=== PATIENT | female | born 1990 | race Caucasian/White ===

== ENCOUNTER 2016-09-25 02:50 | Emergency (ER) | payer BC ==
[2016-09-25] MEDS ORDERED: MORPHINE SULFATE 10 MG/ML INJ IM ONE ×2 (06:31→09:21)
[2016-09-25] MEDS ORDERED: LIDOCAINE 1% INJ-PF (10 MG/ML) 30 ML SDV INJ ONE (06:31)
[2016-09-25] MEDS ORDERED: ONDANSETRON 4 MG TAB.RAPDIS PO ONE ×2 (07:20→09:21)
[2016-09-25] MEDS ORDERED: ONDANSETRON 4 MG TAB.RAPDIS ONE (07:22)
--- NOTE | 2016-09-25 08:05 | ER Document Report ---
Doctor's Note Notes: 09/25/16 08:03 Pt evaluated, noted to have right axillary abscess, given pain control, ID set up placed
[2016-09-25] MEDS ORDERED: ONDANSETRON HCL INJ/PF 4 MG/2 ML SDV IV ONE (09:01)
[2016-09-25] MEDS ORDERED: MORPHINE SULFATE 10 MG/ML INJ IV ONE (09:01)
--- NOTE | 2016-09-25 09:07 | ER Document Report ---
ED General - General Chief Complaint: Abscess Stated Complaint: ABSCESS Mode of Arrival: Ambulatory Information source: Patient Notes: Patient presents emergency department with HER right arm. Patient reports symptoms since for 5 days ago. She reports she cut herself shaving believes it started that way. Denies history of MRSA but does have a history of hep c, passed on from her mother when she was born. She denies fever vomiting diarrhea. Patient is extremely anxious would not hold her arm up for me to look at the abscess. Provided with much of emotional support and coaxing pt finally lifted arm to note erythema, no induration under right arm. Patient has been treating the area with barb TRAVEL OUTSIDE OF THE [place] IN LAST 30 DAYS: No - HPI Onset: Other - 4-5 days Onset/Duration: Persistent Quality of pain: Achy, Burning, Sharp Severity: Severe Pain Level: 5 Associated symptoms: None Exacerbated by: Movement Relieved by: Denies Similar symptoms previously: No Recently seen / treated by doctor: No - Related Data Allergies/Adverse Reactions: No Known Allergies Allergy (Unverified 09/05/15 02:46) Past Medical History - General Information source: Patient Last Menstrual Period: august 28 - Social History Smoking Status: Current Every Day Smoker Cigarette use (# per day): Yes Chew tobacco use (# tins/day): No Frequency of alcohol use: None Drug Abuse: None Lives with: Family Family History: Other - Mother with hepatitis C. Patient has suicidal ideation: No Patient has homicidal ideation: No Renal/ Medical History: Denies: Hx Peritoneal Dialysis GI Medical History: Reports: Hx Hepatitis Surgical Hx: Negative - Immunizations Hx Diphtheria, Pertussis, Tetanus Vaccination: No Review of Systems - Review of Systems Notes: Review HPI for review of systems., All other systems negative Physical Exam - Vital signs Vitals: Temp Pulse Resp BP Pulse Ox 98.5 F 101 H 19 135/65 H 97 09/25/16 03:19 09/25/16 03:19 09/25/16 03:19 09/25/16 03:19 09/25/16 03:19 - Notes Notes: PHYSICAL EXAMINATION: GENERAL: nontoxic looking HEAD: Atraumatic, normocephalic. EYES: Pupils equal round extraocular movements intact, sclera anicteric, conjunctiva are normal. ENT: nares patent, Moist mucous membranes. NECK: Normal range of motion, supple without lymphadenopathy LUNGS: CTAB and equal. No wheezes rales or rhonchi. HEART: Regular rate and rhythm without murmurs ABDOMEN: Soft, no tenderness. No guarding, no rebound EXTREMITIES: Normal range of motion, no pitting edema. abscess right axillae NEUROLOGICAL: Cranial nerves grossly intact. Normal sensory/motor PSYCH: Anxious SKIN: Warm, Dry, normal turgor, + abscess right axillae - Skin Skin irregularity: Abscess Location of irregularity: Other - right axillae Character of irregularity: Erythematous Irregularity with: Tenderness. negative: Induration Course - Re-evaluation Re-evalutation: 09/25/16 09:07 Patient was instructed on procedure. Patient was instructed on sulfa medications signs and symptoms of allergic reaction. Patient will be provided with some more morphine with Zofran and then procedure done. She agrees on plan of care. 09/25/16 09:53 The patient bit down on gauze and screamed the entire procedure. large t incision made, large amount of drainage obtained, area squeezed and probed. She was instructed on medications and treatment of abscess. Her boyfriend verbalized understanding to all instructions. - Vital Signs Vital signs: Temp Pulse Resp BP Pulse Ox 98.5 F 101 H 19 135/65 H 97 09/25/16 03:19 09/25/16 03:19 09/25/16 03:19 09/25/16 03:19 09/25/16 03:19 Procedures - Incision and Drainage Right AXILLAE Type: Simple Anesthetic type: 1% Lidocaine Blade size: 11 I&D procedure: Shurclens applied Incision Method: Incision made by scalpel - large t shaped incision Amount/type of drainage: large amount thick purulent whitish/yellow drainage Notes: 09/25/16 09:53 area probed Discharge - Discharge Clinical Impression: Abscess, Elevated blood pressure reading Condition: Stable Disposition: HOME, SELF-CARE Instructions: Abscess ([facility]), Oral Narcotic Medication ([facility]), Post Incision and Drainage, Trimethoprim-Sulfa ([facility]), Cephalexin ([facility]) Additional Instructions: *You have been treated for an abscess with incision and drainage *Take medication as prescribed *Monitor the site for signs of increasing infection such as increasing pain, redness, swelling, warmth *Wash the site twice daily as discussed *Follow up with a primary care provider within 5 days for recheck *Return to ED for signs of increasing infection, worsening condition, changes, needs Monitor your blood pressure. Your blood pressure was elevated today. This may be because you were anxious, in pain or because you need medication. It is important to follow up with your primary care provider for full evaluation. Prescriptions: Cephalexin Monohydrate [Keflex 500 mg Capsule] 500 mg PO QID #20 capsule Oxycodone HCl 5 mg PO QID PRN #15 capsule PRN Reason: Sulfamethoxazole/Trimethoprim [Bactrim Ds Tablet] 1 each PO BID #20 tablet Forms: Elevated Blood Pressure
[2016-09-25 10:12] VITALS: BP 129/74
== END 2016-09-25 10:12 | disposition home or self-care (01) ==
LOC: ER 02:50
PROC: 0H9BXZZ Drainage of Right Upper Arm Skin, External Approach (ICD-10-PCS; principal; 2016-09-25)
DX: L02.411 Cutaneous abscess of right axilla (principal); F41.9 Anxiety disorder, unspecified; R03.0 Elevated blood-pressure reading, without diagnosis of hypertension; F17.210 Nicotine dependence, cigarettes, uncomplicated
CPT/HCPCS: 10060; 99283; 96372; 87070; 87205; 87075; 87077; 87186; S0119; J2270

== ENCOUNTER 2018-05-08 08:13 | Emergency (ER) | payer BC ==
[2018-05-08] MEDS ORDERED: IPRATROPIUM/ALBUTEROL 0.5-2.5 MG/3 ML AMPUL NEB ONE (09:05)
[2018-05-08] MEDS ORDERED: ALBUTEROL SULFATE 0.083% NEB 2.5 MG/3 ML AMPUL NEB ONE (09:42)
[2018-05-08] MEDS ORDERED: ALBUTEROL SULFATE HFA (90 MCG/PUFF) 8 GM MDI (1 MDI/ER DISP) IH PRN (09:44)
[2018-05-08] MEDS ORDERED: IBUPROFEN 800 MG TABLET PO ONE (09:44)
[2018-05-08] MEDS ORDERED: GUAIFENESIN 600 MG TABLET.SA PO ONE (09:44)
[2018-05-08] MEDS ORDERED: PREDNISONE 20 MG TABLET PO ONE (09:44)
--- NOTE | 2018-05-08 09:44 | RADIOLOGY REPORT (SQ) ---
EXAM DESCRIPTION: CHEST 2 VIEWS COMPLETED DATE/TIME: 05/08/2018 9:17 am REASON FOR STUDY: cough COMPARISON: None. EXAM PARAMETERS: NUMBER OF VIEWS: two views TECHNIQUE: Digital Frontal and Lateral radiographic views of the chest acquired. RADIATION DOSE: NA LIMITATIONS: none FINDINGS: LUNGS AND PLEURA: No opacities, masses or pneumothorax. No pleural effusion. MEDIASTINUM AND HILAR STRUCTURES: No masses or contour abnormalities. HEART AND VASCULAR STRUCTURES: Heart normal size. No evidence for failure. BONES: No acute findings. HARDWARE: None in the chest. OTHER: No other significant finding. IMPRESSION: NO ACUTE RADIOGRAPHIC FINDING IN THE CHEST. TECHNICAL DOCUMENTATION: JOB ID: [id number] [email or web address]- All Rights Reserved Reading location - IP/workstation name: [email or web address]
--- NOTE | 2018-05-08 09:50 | ER Document Report ---
ED General - General Chief Complaint: Cold Symptoms Stated Complaint: COUGH Time Seen by Provider: 05/08/18 09:02 Mode of Arrival: Ambulatory Information source: Patient, [facility] Records Notes: 28-year-old female with hepatitis C not currently receiving treatment presents with complaint of cough, congestion, shortness of breath that started 1 month prior to arrival. Patient states that she has had a persistent productive cough for 1 month. She states it is associated with chest pain and shortness of breath with coughing only. Patient does admit to smoking a half a pack of cigarettes per day. He denies any drug or alcohol use. She denies any sick contacts. She denies fever, chills, abdominal pain, dysuria, hematuria. Last menstrual period was May 07. Patient does report one episode of vomiting after a persistent cough this morning. She has been able to tolerate fluids since that time. She has been trying [id number] cough medicine without relief. TRAVEL OUTSIDE OF THE [place] IN LAST 30 DAYS: No - HPI Onset: Other Onset/Duration: Persistent Quality of pain: Burning Severity: Mild Associated symptoms: Chest pain, Productive cough, Hoarseness, Nausea, Vomiting , Sinus pain/drainage, Shortness of breath Exacerbated by: Walking Relieved by: Denies Similar symptoms previously: Yes Recently seen / treated by doctor: No - Related Data Allergies/Adverse Reactions: No Known Allergies Allergy (Unverified 09/05/15 02:46) Past Medical History - General Information source: Patient - Social History Smoking Status: Current Every Day Smoker Cigarette use (# per day): Yes - 10 Smoking Education Provided: Yes - Smoking cessation counseling was provided for 4 minutes at the bedside Frequency of alcohol use: Occasional Drug Abuse: None Lives with: Spouse/Significant other Family History: Reviewed & Not Pertinent, Other - Mother with hepatitis C. Patient has suicidal ideation: No Patient has homicidal ideation: No Renal/ Medical History: Denies: Hx Peritoneal Dialysis GI Medical History: Reports: Hx Hepatitis Infectious Medical History: Reports: Hx Hepatitis - Immunizations Hx Diphtheria, Pertussis, Tetanus Vaccination: No Review of Systems - Review of Systems Constitutional: Recent illness. denies: Fever EENT: Nose congestion. denies: Throat pain Cardiovascular: Chest pain - With coughing only Respiratory: Cough, Short of breath Gastrointestinal: denies: Abdominal pain Genitourinary: denies: Dysuria, Flank pain Female Genitourinary: No symptoms reported Musculoskeletal: denies: Back pain, Neck pain, Leg swelling Skin: denies: Rash Hematologic/Lymphatic: denies: Swollen glands Neurological/Psychological: denies: Headaches -: Yes All other systems reviewed and negative Physical Exam - Vital signs Vitals: Temp Pulse Resp BP Pulse Ox 98.1 F 89 20 118/70 93 05/08/18 08:23 05/08/18 08:23 05/08/18 08:23 05/08/18 08:23 05/08/18 08:23 Interpretation: Normal - Notes Notes: PHYSICAL EXAMINATION: GENERAL: Well-appearing, well-nourished and in no acute distress. HEAD: Atraumatic, normocephalic. EYES: Pupils equal round and reactive to light, extraocular movements intact, conjunctiva are normal. ENT: Nares patent, oropharynx clear without exudates. Moist mucous membranes. NECK: Normal range of motion, supple without lymphadenopathy LUNGS: Breath sounds clear to auscultation bilaterally and equal. Mild expiratory wheezing in the upper lung ford, no rales or rhonchi. HEART: Regular rate and rhythm without murmurs ABDOMEN: Soft, nontender, nondistended abdomen. No guarding, no rebound. No masses appreciated. Female : deferred Musculoskeletal: Normal range of motion, no pitting or edema. No cyanosis. NEUROLOGICAL: Cranial nerves grossly intact. Normal speech, normal gait. Normal sensory, motor exams PSYCH: Normal mood, normal affect. SKIN: Warm, Dry, normal turgor, no rashes or lesions noted. Course - Re-evaluation Re-evalutation: 05/08/18 17:42 Patient presents with a clinical history and exam most consistent with an acute viral bronchitis. Patient is overall well in appearance without tachypnea, hypoxemia, tachycardia, or difficulty with ambulation. Breath sounds with mild wheezing. No fever. Patient does have additional signs of upper respiratory infection including nasal congestion, sore throat, and sinus pressure. No indication for labs. Chest x-ray without evidence of pneumonia will treat with bronchodilators, prednisone and Robitussin. On reevaluation she reported great improvement of her cough, breathing. At this time will discharge with return precautions and follow-up recommendations. Verbal discharge instructions given a the bedside and opportunity for questions given. Medication warnings reviewed. Patient is in agreement with this plan and has verbalized understanding of return precautions and the need for primary care follow-up in the next 24-72 hours. Smoking cessation advised. Patient was evaluated and treated as appropriate for the patient's presenting symptoms and complaint, with consideration of any critical or life threatening conditions that may be associated with their obtained history and exam as noted above. All results were discussed with patient. Patient provided the opportunity to ask questions , and express concerns. Patient was educated on treatments based on their presumed diagnosis as noted above. At this time we will discharge the patient with return precautions and follow-up recommendations. Verbal discharge instructions given a the bedside. Medication warnings reviewed. Patient is in agreement with this plan and has verbalized understanding of return precautions. After careful consideration I feel that that patient can be safely discharged from the emergency department, they were advised to followup with a primary care physician in 2-3 days. Dictation on this chart was performed using voice recognition software and may result in unintended grammatical, spelling, syntax or errors. - Vital Signs Vital signs: Temp Pulse Resp BP Pulse Ox 97.9 F 93 18 124/67 99 05/08/18 11:01 05/08/18 11:01 05/08/18 11:01 05/08/18 11:01 05/08/18 11:01 - Diagnostic Test Radiology reviewed: Image reviewed, Reports reviewed Discharge - Discharge Clinical Impression: Bronchitis, Tobacco use Dyspnea Qualifiers: Dyspnea type: unspecified Qualified Code(s): R06.00 - Dyspnea, unspecified URI (upper respiratory infection) Qualifiers: URI type: unspecified URI Qualified Code(s): J06.9 - Acute upper respiratory infection, unspecified Condition: Good Disposition: HOME, SELF-CARE Instructions: Bronchitis With Bronchospasm (Wheezing) ([facility]), Upper Respiratory Illness ([facility]) Additional Instructions: You were seen for symptoms most consistent with bronchitis. This can take up to 12 weeks to fully resolve. This is generally due to a viral infection. Please follow-up with your primary doctor in the next 2-3 days. Return if you develop worsening cough, vomiting, fever >100.4, pass out, begin coughing blood, or have any other symptoms that are concerning to you. Please use the medications prescribed today as directed. Follow up with your [id number] hours for further care or return to the ED IMMEDIATELY if symptoms worsen or you have any concerns. If you cannot afford to follow up with your primary care physician a list of low cost clinics have been provided at the end of your discharge papers as well. Most prescribed medications have multiple side effects. The safest thing to do is when filling your prescription speak to your pharmacist regarding possible interactions with your normal home medications and over the counter medications such as Ibuprofen, Tylenol, Benadryl. If you experience any symptoms that cause you discomfort or concern you should discontinue the medication immediately and return to the emergency room or call your primary care physician. Prescriptions: Guaifenesin/Codeine Phos [Robitussin-AC Syrup 59 ml] 10 ml PO QHS #50 ml Prednisone [Deltasone 20 mg Tablet] 40 mg PO DAILY 5 Days #10 tablet Forms: Smoking Cessation Education, Return to Work Referrals: MILAGROS WEIR DO [Primary Care Provider] - Follow up as needed
[2018-05-08 09:53] LABS: A TYPE INFLUENZA AG NEGATIVE (NEGATIVE); B INFLUENZA AG NEGATIVE (NEGATIVE)
[2018-05-08 11:02] VITALS: BP 124/67
== END 2018-05-08 11:04 | disposition home or self-care (01) ==
LOC: ER 08:13
DX: J40 Bronchitis, not specified as acute or chronic (principal); J06.9 Acute upper respiratory infection, unspecified; R05 Cough; R07.9 Chest pain, unspecified; R06.02 Shortness of breath; R09.81 Nasal congestion; J02.9 Acute pharyngitis, unspecified; R11.2 Nausea with vomiting, unspecified; R49.0 Dysphonia; J34.89 Other specified disorders of nose and nasal sinuses; R06.2 Wheezing; F17.210 Nicotine dependence, cigarettes, uncomplicated; Z71.6 Tobacco abuse counseling
CPT/HCPCS: 94640 ×2; 99284; 87804; 71046; J7512; J3490; J7620

== ENCOUNTER 2018-06-24 16:41 | Emergency (ER) | payer SELFPAY ==
[2018-06-24] MEDS ORDERED: LIDOCAINE 2% VISCOUS SOLN 20 ML UDCUP PO ONE (18:09)
[2018-06-24] MEDS ORDERED: PENICILLIN V POTASSIUM 500 MG TABLET PO ONE (18:09)
[2018-06-24] MEDS ORDERED: OXYCODONE-ACETAMINOPHEN 5-325 MG TABLET PO ONE (18:09)
[2018-06-24] MEDS ORDERED: OXYCODONE HCL IR 5 MG TABLET PO ONE (18:10)
[2018-06-24 18:12] VITALS: BP 142/76
--- NOTE | 2018-06-24 18:13 | ER Document Report ---
ED Oral Problem - General Chief Complaint: Toothache Stated Complaint: TOOTH PAIN Time Seen by Provider: 06/24/18 17:56 Mode of Arrival: Ambulatory Information source: Patient Notes: 38-year-old female presented to ED for complaint of dental pain with multiple "rotten teeth "that she states is been going on intermittently for a year. She states that the dental pain to her left wisdom tooth has been for about a week and has been getting worse. She states she does not have the money to go to a doctor or dentist and just needs something for the pain. I explained to patient that no treatment that I gave her in the emergency room is going to last more than temporary it the only treatment she needs is a dentist. She stated that [facility] her multiple dental caries and pain. TRAVEL OUTSIDE OF THE [place] IN LAST 30 DAYS: No - HPI Patient complains to provider of: Toothache - Tooth #17. No: Swelling of face, Swelling of jaw Onset: Other - Chronic with his acute pain for the last week Quality of pain: Sharp, Throbbing Severity: Severe Pain Level: 5 Associated symptoms: Toothache Worsened by: Cold Relieved by: Nothing Recently seen / treated by doctor/dentist: Yes - Related Data Allergies/Adverse Reactions: acetaminophen [From Tylenol] Adverse Reaction (Verified 06/24/18 16:49) Past Medical History - General Information source: Patient - Social History Smoking Status: Former Smoker Cigarette use (# per day): No Chew tobacco use (# tins/day): No Smoking Education Provided: No Frequency of alcohol use: Occasional Drug Abuse: None Lives with: Family Family History: Reviewed & Not Pertinent, Other - Mother with hepatitis C. Patient has suicidal ideation: No Patient has homicidal ideation: No - Past Medical History Cardiac Medical History: Reports: None Pulmonary Medical History: Reports: None EENT Medical History: Reports: None Neurological Medical History: Reports: None Endocrine Medical History: Reports: None Renal/ Medical History: Reports: None Malignancy Medical History: Reports: None GI Medical History: Reports: Hx Hepatitis Musculoskeletal Medical History: Reports None Skin Medical History: Reports None Psychiatric Medical History: Reports: None Traumatic Medical History: Reports: None Infectious Medical History: Reports: Hx Hepatitis - c Surgical Hx: Negative Past Surgical History: Reports: None - Immunizations Hx Diphtheria, Pertussis, Tetanus Vaccination: No Review of Systems - Review of Systems Constitutional: No symptoms reported EENT: Mouth pain, Dental problem Cardiovascular: No symptoms reported Respiratory: No symptoms reported Gastrointestinal: No symptoms reported Genitourinary: No symptoms reported Female Genitourinary: No symptoms reported Musculoskeletal: No symptoms reported Skin: No symptoms reported Hematologic/Lymphatic: No symptoms reported Neurological/Psychological: No symptoms reported -: Yes All other systems reviewed and negative Physical Exam - Vital signs Vitals: Temp Pulse Resp BP Pulse Ox 98.4 F 83 18 127/78 H 98 06/24/18 17:07 06/24/18 17:07 06/24/18 17:07 06/24/18 17:07 06/24/18 17:07 Interpretation: Normal - General General appearance: Appears well, Alert - HEENT Head: Normocephalic, Atraumatic Eyes: Normal Pupils: PERRL Ears: Normal External canal: Normal Tympanic membrane: Normal Mouth/Lips: Caries Mucous membranes: Normal Teeth diagram: 1 - Large cavity with redness to the surrounding gums. She also has multiple decayed and broken teeth throughout her mouth Pharynx: Normal Neck: Normal - Respiratory Respiratory status: No respiratory distress Chest status: Nontender Breath sounds: Normal Chest palpation: Normal - Cardiovascular Rhythm: Regular Heart sounds: Normal auscultation Murmur: No - Abdominal Inspection: Normal Distension: No distension Bowel sounds: Normal Tenderness: Nontender Organomegaly: No organomegaly - Back Back: Normal, Nontender - Extremities General upper extremity: Normal inspection, Nontender, Normal color, Normal ROM, Normal temperature General lower extremity: Normal inspection, Nontender, Normal color, Normal ROM, Normal temperature, Normal weight bearing. No: Alex's sign - Neurological Neuro grossly intact: Yes Cognition: Normal Orientation: AAOx4 [place] Coma Scale Eye Opening: Spontaneous [place] Coma Scale Verbal: Oriented Shayla Coma Scale Motor: Obeys Commands [place] Coma Scale Total: 15 Speech: Normal Motor strength normal: LUE, RUE, LLE, RLE Sensory: Normal - Psychological Associated symptoms: Normal affect, Normal mood - Skin Skin Temperature: Warm Skin Moisture: Dry Skin Color: Normal Course - Re-evaluation Re-evalutation: 06/24/18 23:38 Patient treated with viscous lidocaine, penicillin VK, and one oxycodone while in the emergency room for her dental pain. Patient was discharged home with a prescription for penicillin VK and a syringe of viscous lidocaine. Presentation is most consistent with likely an infected tooth. Airway is patent. Vitals within normal limits. Patient is able swallow without any difficulty. There is no significant facial swelling. No evidence of Freddie angina, apical abscess, or airway obstruction. Patient will be started on antibiotics. I've instructed to follow-up with dentistry as earliest ability for definitive management. At this time will discharge with return precautions and follow-up recommendations. Verbal discharge instructions given a the bedside and opportunity for questions given. Medication warnings reviewed. Patient is in agreement with this plan and has verbalized understanding of return precautions and the need for primary care follow-up in the next 24-72 hours. - Vital Signs Vital signs: Temp Pulse Resp BP Pulse Ox 98.2 F 89 16 142/76 H 97 06/24/18 18:12 06/24/18 18:12 06/24/18 18:12 06/24/18 18:12 06/24/18 18:12 Discharge - Discharge Clinical Impression: Pain due to dental caries Condition: Stable Disposition: HOME, SELF-CARE Instructions: Use of Yqmi-Sru-Jbrfuok Ibuprofen ([facility]) Additional Instructions: TOOTHACHE: Your pain is due to dental decay. The tooth must be repaired in order for you to feel better. You will, therefore, be referred to a dentist. We do not have dentists on the staff at [facility]. Severe swelling or drainage around a tooth usually means a dental abscess. This also requires evaluation and treatment by the dentist, but antibiotics may be prescribed while awaiting dental treatment. You should be rechecked immediately if you develop major swelling of the fa ce, increasing pain, a lump in the jaw or gums, headache, difficulty swallowing, or fever. ORAL NARCOTIC MEDICATION: You have been given an oxycodone for pain control. This medication is a narcotic. It's best taken with food, as nausea can result if taken on an empty stomach. Don't operate machinery or drive within six hours of taking this medication. Do not combine this medicine with alcohol, or with any medication which can cause sedation (such as cold tablets or sleeping pills) unless you get permission from the physician. Narcotics tend to cause constipation. If possible, drink plenty of fluids and eat a diet high in fiber and fruits. Please be aware that prescription narcotics also have the potential for abuse. People become addicted to these medications because of the general sense of wellbeing that they induce. This feeling along with a significant reduction in tension, anxiety, and aggression provides a stimulating seductive quality to these drugs. Once your pain is under control, we encourage you to discard your unused narcotics. PENICILLIN V K: You have been given a prescription for Penicillin VK. Your physician has determined that this is the best antibiotic for your condition. Pen VK can be taken with meals, however more of the antibiotic gets into the bloodstream if it's taken on an empty stomach. Penicillin usually has no side effects. However, allergy to penicillins is common. If you have had an allergic reaction to any drug of the penicillin family, you should never take any other penicillin. Notify your doctor at once if you develop hives, itching, swelling, faintness, or shortness of breath. You have been given a syringe of viscous lidocaine. Place a small amount of this on your finger and rub into the tooth and gums do this every 3-4 hours. FOLLOW-UP CARE: You have been referred for follow-up care to the dentists listed below. Call the dentists office for an appointment as you were instructed or within the next two days. If you experience worsening or a significant change in your symptoms, notify the physician immediately or return to the Emergency Department at any time for re-evaluation. [facility] [address] [place], [place] Friday mornings, by appointment [facility] [address] [place] [address] [facility] [address] [facility] [place] [address] [facility] [address] [facility] [place] [employer] [facility] [address] [facility]. [email or web address] [address] [place] [address] Friday- 8:00am to 5:00 pm Will see patients from other [facility]. Charges based on income and family size and accepts Medicare, Medicaid, and Insurances Will pull molars [facility] [id number] Hours of Operation 8:00 am - 4:30 pm weekdays The following dental offices accept Medicaid: [facility] Dr. Smith Dr. Cole Dr. Reyna Dr. Coles Bonifacio Cher[place], [place], and Joel oral surgery Dr. Garland ([place]) Dr. Long ([place]) [facility] Drs. Erazo ([place]) Dr. Asencio ([place]) [facility] Dr. Weiss ([place]) Drs. Kerns and ([place]) Medicaid Care Line Prescriptions: Penicillin V Potassium [Penicillin Vk 500 mg Tablet] 500 mg PO BID #20 tablet Forms: Elevated Blood Pressure, Smoking Cessation Education Referrals: MILAGROS WEIR DO [NO LOCAL MD] - Follow up as needed
== END 2018-06-24 18:36 | disposition home or self-care (01) ==
LOC: ER 16:41
DX: K02.9 Dental caries, unspecified (principal); Z88.6 Allergy status to analgesic agent
CPT/HCPCS: 99282; J3490

== ENCOUNTER 2019-07-02 23:40 | Emergency (ER) | payer SELFPAY ==
[2019-07-03] MEDS ORDERED: LIDOCAINE 4% TRANSPARENT DRESSING 5 GM KIT TP ONE (05:27)
[2019-07-03] MEDS ORDERED: PROMETHAZINE HCL 25 MG TABLET PO ONE (05:28)
[2019-07-03] MEDS ORDERED: OXYCODONE HCL IR 5 MG TABLET PO ONE (05:28)
--- NOTE | 2019-07-03 06:36 | ER Document Report ---
HPI - HPI Time Seen by Provider: 07/03/19 05:15 Pain Level: 5 Context: Patient is a 29-year-old female that comes to the emergency department for chief complaint of abscess to the right axillary area. She states this started becoming swollen and tender over the past couple of days although she states she has had many abscesses in the past and she was told she may have hidradenitis suppurativa she is on no daily medications for this. She denies . She denies IVDA. - REPRODUCTIVE Reproductive: DENIES: : Past Medical History - General Information source: Patient - Social History Smoking Status: Current Every Day Smoker Frequency of alcohol use: None Drug Abuse: None Lives with: Family Family History: Reviewed & Not Pertinent, Other - Mother with hepatitis C. Patient has suicidal ideation: No Patient has homicidal ideation: No Renal/ Medical History: Denies: Hx Peritoneal Dialysis GI Medical History: Reports: Hx Hepatitis - c Infectious Medical History: Reports: Hx Hepatitis - c Past Surgical History: Reports: Hx Oral Surgery - Immunizations Hx Diphtheria, Pertussis, Tetanus Vaccination: Yes Vertical Provider Document - CONSTITUTIONAL General Appearance: WD/WN, No Apparent Distress - INFECTION CONTROL TRAVEL OUTSIDE OF THE [place] IN LAST 30 DAYS: No - HEENT HEENT: Atraumatic, Normal ENT Exam, Normocephalic - NECK Neck: Normal Inspection - RESPIRATORY Respiratory: Breath Sounds Normal, No Respiratory Distress - CARDIOVASCULAR Cardiovascular: Regular Rate, Regular Rhythm - GI/ABDOMEN Gastrointestinal: Abdomen Soft, Abdomen Non-Tender. negative: Abdomen Tender - BACK Back: Normal Inspection - MUSCULOSKELETAL/EXTREMETIES Musculoskeletal/Extremeties: MAEW, FROM, Non-Tender - NEURO Level of Consciousness: Awake, Alert, Appropriate Motor/Sensory: No Motor Deficit, No Sensory Deficit - DERM Integumentary: Warm, Dry, No Rash, Abscess - There is an isolated indurated, fluctuant abscess with an apparent head in the right axilla without significant surrounding erythema, nearby adenopathy, or other concerning findings Course - Re-evaluation Re-evalutation: Isolated abscess in the right axillary drained, cleansed, dressed. Placed on Bactrim. No other concerning findings noted. Discussed care, follow-up, return precautions. Refer to surgical clinic because of reported recurrence although there does not appear to be significant scarring or overt hidradenitis suppurativa. Patient states appreciation and agreement with plan. - Vital Signs Vital signs: Temp Pulse Resp BP Pulse Ox 98.7 F 86 16 123/86 H 100 07/03/19 03:27 07/03/19 03:27 07/03/19 03:27 07/03/19 03:27 07/03/19 03:27 Procedures - Incision and Drainage Right axilla Type: Single Anesthetic type: Other - lmx on patient request, refused lidocaine I&D procedure: Shurclens applied, Sterile dressing applied Incision Method: Incision made by scalpel Amount/type of drainage: Moderate amount of purulent drainage Discharge - Discharge Clinical Impression: Abscess Disposition: HOME, SELF-CARE Additional Instructions: There has been drained, keep clean, clean with soap and water, keep absorbent dressing over the area. Take antibiotic as prescribed to completion. Follow-up with the surgical clinic referral because of recurrence. Return if you worsen including developing or spreading redness, fever, or any other concerning or worsening symptoms. Prescriptions: Sulfamethoxazole/Trimethoprim [Bactrim Ds Tablet] 1 each PO BID #14 tablet Forms: Return to Work
[2019-07-03 07:42] VITALS: BP 132/77
== END 2019-07-03 07:43 | disposition home or self-care (01) ==
LOC: ER 23:40
DX: L02.411 Cutaneous abscess of right axilla (principal); F17.200 Nicotine dependence, unspecified, uncomplicated; Z86.19 Personal history of other infectious and parasitic diseases
CPT/HCPCS: 99282; 10060; J3490